=== PATIENT | female | born 1970 | race Caucasian/White ===

== ENCOUNTER 2016-10-27 15:24 | Observation (INO) | payer OTHER ==
[~2016-10-27] VITALS: Ht 157.5 cm; Wt 85.5 kg
[2016-10-27 15:38] VITALS: BP 121/66; PULSE 72; RESP 10; O2SAT 99
[2016-10-27 15:57] LABS: BASOPHILS % (AUTO) 0.4 % (0-3); EOSINOPHILS % (AUTO) 1.3 % (0-5); MONOCYTES % (AUTO) 8.7 % (4-12); Mean Corpuscular Hemoglobin 30.8 pg (27.0-35.0); Mean Corpuscular Volume 92.8 fL (81-100); NEUTROPHILS % (AUTO) 64.4 % (40-74); Platelet Count 408 bil/L (150-400)
[2016-10-27 16:27] LABS: Magnesium 2.1 mg/dL (1.6-2.6)
--- NOTE | 2016-10-27 16:31 | DRSVH ---
PROCEDURE: X-RAY CHEST ONE VIEW, PORTABLE ([id number]) INDICATIONS: CHEST PAIN TECHNIQUE: One view of the chest was acquired. COMPARISON: None. FINDINGS: Surgical changes and devices: None. Lungs and pleura: No pleural effusions or pneumothorax. Lungs are clear. Mediastinum: Mediastinal contours appear normal. Heart size is normal. Bones and chest wall: No suspicious bony lesions. Overlying soft tissues appear unremarkable. IMPRESSION: No acute cardiopulmonary disease. Dictated by: Deepak Fink [facility] Interpreted: Elisabet Walker MD on 10/27/2016 at 16:30 Transcribed by: BOGDAN on 10/27/2016 at 16:30 Approved by: Elisabet Walker MD, PhD on 10/27/2016 at 16:36
[2016-10-27 16:32] LABS: TROPONIN T < 0.010 ug/L (0.0-0.011)
[2016-10-27 17:40] VITALS: BP 117/58; PULSE 66; RESP 22; O2SAT 99
--- NOTE | 2016-10-27 17:58 | ED.REPORT ---
HPI-Chest Pain 40 and Over Date of Service Oct 27, 2016 ED Provider: Vijay Jacobo DO Patient is a 46 year old female with a history of a hiatal hernia with acid reflux and IBS who presents to the ED via EMS after she developed right sided chest pressure 2 days ago, with a year of intermittent episodes of nausea, vomiting, and chest pressure. Patient reports radiation of her pain down her left arm. Patient states that she has been having episodes of nausea intermittently for the past year. She has been having an episodes of nausea and vomiting every month, where she awakes from sleep nauseated. Patient had several of these episodes in the past month. The patient reports the sensation of aspiration and acid reflux in conjunction with these episodes. Patient states that her upper abdomen becomes distended and she feels pressure on her ribcage. She then develops back pressure and feels the urge to vomit. She is able to drink through these episodes. Patient had her hiatal hernia reduced in the past and this improved her symptoms. Patient also is on Omeprazole for acid reflux. Patient was seen by her PCP today, Ariana Valdivia, who thought that her symptoms were concerning. She was found to have abnormal EKG findings ( incomplete RBBB) and was sent to the ED for evaluation. The patient's symptoms today were similar to what her mother experienced prior to having myocardial infarctions. She has not had a cholecystectomy and she denies any RUQ abdominal pain. She denies a fever, chills, cough, or shortness of breath. Patient has not been seen by GI or had an upper endoscopy. Nursing Notes Stated Complaint: CHEST PAIN Chief Complaint: Chest Pain Nursing Notes Reviewed: Yes Allergies: Coded Allergies: Sulfa (Sulfonamide Antibiotics) (Verified Allergy, Severe, Anaphylaxis, ) latex (Verified Allergy, Mild, 08/04/09) Scheduled Lactobacillus Combo No.11 (Probiotic) 1 Each Cap.sprink 2 EACH PO DAILY Multivitamin (Once Daily) 1 Each Tablet 1 EACH PO DAILY Nortriptyline (Nortriptyline) 10 Mg Capsule 20 MG PO HS Omeprazole Magnesium (Prilosec Otc) 20 Mg Tablet.dr 20 MG PO HS Polyethylene Glycol 3350 (Miralax) 17 Gm Powd.pack 17 GM PO DAILY Scheduled PRN oxyCODONE (oxyCODONE) 5 Mg Tablet 5 MG PO Q4H PRN PRN For Moderate Pain Miscellaneous Medications Cranberry Conc/Ascorbic Acid (Cranberry 6,000 mg Softgel) 1 Each Capsule 1 EACH PO Folic Acid (Folic Acid) 20 Mg Capsule 20 MG PO General Time Seen by MD: 17:58 Chief Complaint Chest pain, Other (nausea and vomiting) Hx Obtained From: Patient Arrived By: Ambulance Sudden in Onset?: No Onset Occurred: More than a week ago... (nausea and vomiting for the past year , chest pressure today) Symptom Duration: Waxes and wanes Location: : Chest left: Chest right Quality: Pressure Radiation: : Arm left Severity: Current: Moderate Severity: Maximum: Moderate Recent Healthcare: No recent doctor visit, No recent hospitalization Similar Sx Previous: Yes Past Medical History Past Medical History hiatal hernia with occasional acid reflux IBS Reports: Asthma Past Surgical History Denies: Cholecystectomy Reports: Tubal ligation Social History Other Social History: Good social support, Local resident Ambulatory Status Independent Review of Systems Constitutional: Denies: Chills, Fever Respiratory: Denies: Non-productive cough, Shortness of breath Cardiovascular: Reports: Chest pain GI: Reports: Nausea (for the past year), Vomiting (for the past year), Denies: Abdominal pain Musculoskeletal: Reports: Extremity pain, Denies: Extremity swelling Skin: Reports Diaphoresis, Denies Rash Complete sys rev & neg: except as marked. Physical Exam Initial Vital Signs Vital Signs (First) Date Time Temp Pulse Resp B/P Pulse Ox O2 Delivery O2 Flow Rate FiO2 10/27/16 15:38 36.9 72 10 121/66 99 Room Air Initial VS: Reviewed Head / Eyes: Atraumatic, Normocephalic, PERRL ENT: Conjunctiva normal, No scleral icterus Neurologic: Alert, Oriented, Nonfocal Psychiatric: Mood/affect normal, Behavior normal, Normal thought content General/Constitutional: Awake, Alert, No acute distress Respiratory / Chest: Breath sounds NL, Breath sounds = bilat, No respiratory distress, No rales, No rhonchi, No wheezing cannot reproduce chest pain with palpation Cardiovascular: Heart rate NL, Regular rhythm, Heart sounds NL Abdomen: Soft, Non-tender, No guarding, No rebound Neck: Supple, No adenopathy Lower Extremity / Pelvis / MS: No swelling, No edema Skin: Warm, Dry Color / Condition: Negative: Jaundice present Upper Extremity / MS: No swelling, No edema Interpretation & Diagnostics ABDOMEN US IMPRESSION: 1. Cholelithiasis 2. Gallbladder wall thickening highly suspicious for acute cholecystitis. Dictated by: Elisabet Walker MD, PhD on 10/27/2016 at 19:53 Approved by: Elisabet Walker MD, PhD on 10/27/2016 at 19:53 Lab Results Interpretation Result Diagram: 10/28/16 0500 10/28/16 0500 Test 10/27/16 08:19 10/27/16 15:52 10/27/16 17:48 10/27/16 20:20 Urine Color Straw (YELLOW) Urine Appearance Hazy (CLEAR,HAZY) Urine pH 5.5 (5.0-8.0) Urine Specific [place] 1.025 (1.003-1.035) Urine Protein Negativemg/dL (NEG,TRACE) Urine Glucose (UA) Negativemg/dL (NEGATIVE) Urine Ketones Negativemg/dL (NEGATIVE) Urine Occult Blood Negative (NEGATIVE) Urine Nitrite Negative (NEGATIVE) Urine Bilirubin Negative (NEGATIVE) Urine Urobilinogen Normalmg/dL (NORMAL) Urine Leukocyte Esterase Negative (NEGATIVE) Urine RBC 0-2/hpf (0-2) Urine WBC 0-5/hpf (0-5) Urine Epithelial Cells Occasional/hpf (NONE-MOD) Urine Crystals None seen (NONE SEEN) Urine Bacteria None/hpf (NONE-FEW) Urine Hyaline Casts None/lpf (NONE) Urine Granular Casts None seen (NONE SEEN) Urine Waxy Casts None seen (NONE SEEN) Urine Red Blood Cell Casts None seen (NONE SEEN) Urine White Blood Cell Casts None seen (NONE SEEN) Urine Mucus None seen (None Seen) Urine Trichomonas None seen (NONE SEEN) Urine Yeast None (NONE SEEN) Urinalysis Comment Urine Culture Reflexed Not indicated Magnesium Level 2.1mg/dL (1.6-2.6) Hold Urine Received (Received) Troponin T < 0.010ug/L (0.0-0.011) HCG Beta Subunit 0.500mIU/mL Pulse Oximetry Interpretation Pulse Oximetry: Pulse Ox normal ECG Interpretation ECG Interpretation: Sinus rhythm, Rate 72 Incomplete RBBB Time: 18:01 Interpreted by: ED physician Normal ECG Interpretation: No acute ischemic changes X-Ray Chest Interpretation Chest Xray Interpretation: IMPRESSION: No acute cardiopulmonary disease. Dictated by: Deepak Fink [facility] Interpreted: Elisabet Walker MD on 10/27/2016 at 16:30 Transcribed by: BOGDAN on 10/27/2016 at 16:30 Approved by: Elisabet Walker MD, PhD on 10/27/2016 at 16:36 View: Portable Interpretation / Wet Read by: Interpret - Radiologist Re-Eval/Medical Decision Source of Hx: Old records Time of Eval: 18:41 Patient Status: Condition improved Re-Evaluation/Progress Note: Rechecked the patient, who was informed that her labs are normal. No acute problem on her chest x-ray or EKG. Will order an US of her abdomen to rule out gallbladder disease. Patient understands and agrees with this plan. All questions were addressed. Time of Eval: 19:49 Patient Status: Condition improved Re-Evaluation/Progress Note: Informed the patient of her ultrasound result, which showed too many gallstones to count. Will speak with her PCP prior to discharge home. Will also do 2x Troponin rule out. Time of Eval: 20:04 Re-Evaluation/Progress Note: Informed the patient of the finding of acute cholecystitis per official US reading. Will contact the surgeon for consult. Abdomen remains nontender. Patient now reports a headache. Time of Eval: 20:38 Patient Status: Condition improved Re-Evaluation/Progress Note: Informed the patient of the conversation with Dr. Lemons. Patient should call tomorrow morning to schedule an appointment. Awaiting repeat Troponin prior to discharge. Patient understands and agrees with the plan to be discharged home. Discharge instructions and follow-up discussed. All questions were addressed. Return to the ED warnings given. Time of Eval: 21:30 Re-Evaluation/Progress Note: Rechecked the patient. She reports ongoing pain. She is now unsure if she wants to go home or if she will stay in the hospital. She will receive additional fluids in the ED. Time of Eval: 23:32 Re-Evaluation/Progress Note: Patient has determined that she would like to be admitted to the hospital for cholecystectomy. All questions were addressed. Consultation #1: Referral / Consult Name: Ricardo Woodall DO Consulted With: Primary care physician, On-call physician Call Returned at: 19:57 Note: Spoke with on-call provider for Dr. Jose C Lee. Informed of labs and US results today, with need for cholecystectomy. Will update the patient's record and notify MELISA Valdivia. Consultation #2: Referral / Consult Name: Behzad Lemons MD Consulted With: Surgeon Call Returned at: 20:34 Charging Operator: Will see in office Note: Spoke with Dr. Lemons, surgeon, about the patient's US result. Plan to discharge patient with outpatient follow-up. Consultation #3: Referral / Consult Name: Behzad Lemons MD Consulted With: Surgeon Call Returned at: 23:36 Charging Operator: Will see patient, Agrees with eval, Agrees with plan, Accepts admit Note: Spoke with Dr. Lemons, surgeon, who agrees to accept the patient for admit. Counseled Regarding: Diagnosis, Lab results, Need for admission Discharge & Departure Primary Impression: Cholecystitis Additional Impressions: Cholelithiasis Cholelithiasis location: gallbladder Cholecystitis presence: without cholecystitis Biliary obstruction: without biliary obstruction Qualified Code : K80.20 - Calculus of gallbladder without cholecystitis without obstruction Biliary colic Non-cardiac chest pain Disposition: ADMITTED TO HOSPITAL Discharge Condition All VS Reviewed: Yes Condition: Stable Referrals: Ariana Valdivia PA-C (PCP) Behzad Lemons MD Scribe Attestation Portions of this note were transcribed by Bette Reich. I, Dr. Jacobo personally performed the history, physical exam and medical decision-making; I reviewed and confirmed the accuracy of the information in the transcribed note. Signed by: Neil Blanco, 10/28/2016 0029 copies to: Behzad Lemons MD; Ariana Valdivia PA-C, Todd P DO Oct 27, 2016 17:58 Bette Reich Oct 27, 2016 18:12
[2016-10-27] MEDS ORDERED: Alum-Mag Hydrox-Simeth 30 mL Suspension PO ONE (18:20)
[2016-10-27 19:04] VITALS: BP 117/58; PULSE 70; RESP 16; O2SAT 99
--- NOTE | 2016-10-27 19:55 | DRSVH ---
PROCEDURE: US ABDOMEN ([id number]) INDICATIONS: nausea, upper abdominal pain, right arm pain TECHNIQUE: Real-time scanning was performed of the abdominal and retroperitoneal organs, with image documentatio n. COMPARISON: None. FINDINGS: Liver: Liver is normal in size and homogeneous in echotexture. Gallbladder: Gallbladder is filled with gallstones. Gallbladder wall is thickened to approximately 3.5-4.0 mm. Biliary ducts: Intrahepatic bile ducts are non-dilated. Extrahepatic bile duct caliber measures 1.9 mm. Normal is 6-7 mm or less in diameter, or 10 mm or less post-cholecystectomy. Pancreas: Visualized portions of the pancreas are sonographically normal. Spleen: Spleen is normal in size and homogeneous in echotexture. Kidneys: Kidneys are normal in size and echotexture. Right kidney measures 9.6 cm long; left kidney measures 10.4 cm long. No hydronephrosis or nephrolithiasis. No solid masses. Aorta: Visualized aorta is normal in caliber at less than 3 cm. Iliacs: Proximal common iliac arteries are normal in caliber at less than 2.5 cm. IVC: Intrahepatic inferior vena cava is patent. Miscellaneous: No free abdominal fluid. IMPRESSION: 1. Cholelithiasis 2. Gallbladder wall thickening highly suspicious for acute cholecystitis. Dictated by: Elisabet Walker MD, PhD on 10/27/2016 at 19:53 Approved by: Elisabet Walker MD, PhD on 10/27/2016 at 19:53
[2016-10-27] MEDS ORDERED: HYDROcodone-APAP 5-325 mg Tablet PO ONE (20:15)
[2016-10-27] MEDS ORDERED: Ketorolac 30 mg/mL 2 mL Inj IM ONE (20:15)
[2016-10-27] MEDS ORDERED: _Ondansetron ODT 4 mg Tablet PO PRN (20:45)
[2016-10-27] MEDS ORDERED: _HYDROcodone/APAP 5-325 mg Tablet PO PRN (20:45)
[2016-10-27] MEDS ORDERED: _oxyCODONE/APAP 5-325 mg Tablet PO PRN (21:35)
[2016-10-27] MEDS: HYDROmorphone 0.5 mg/0.5 mL iSecure Syringe IVPUSH PRN ×2 (21:44→22:30)
[2016-10-27] MEDS ORDERED: metroNIDAZOLE Inj 500 MG in IV Premix 1 EACH IV ONE (23:35)
[2016-10-27] MEDS ORDERED: cefTRIAXone Inj 2,000 MG in IV Premix 1 EACH IV ONE (23:35)
[2016-10-27] MEDS ORDERED: Ondansetron 2 mg/mL 2 mL Inj IVPUSH PRN ×2 (23:45)
[2016-10-27] MEDS ORDERED: HYDROmorphone 0.5 mg/0.5 mL iSecure Syringe IVPUSH PRN (23:45)
[2016-10-27] MEDS ORDERED: Alum-Mag Hydrox-Simeth 30 mL Suspension PO PRN (23:45)
[2016-10-28] VITALS (22 sets, daily range): BP systolic 96–147; BP diastolic 61–90; PULSE 60–104; RESP 13–18; O2SAT 95–100
[2016-10-28] MEDS: Lactated Ringer's 1,000 ML IV SCH ×2 (01:57→17:22)
[2016-10-28 05:07] LABS: BASOPHILS % (AUTO) 0.2 % (0-3); EOSINOPHILS % (AUTO) 0.3 % (0-5); MONOCYTES % (AUTO) 6.9 % (4-12); Mean Corpuscular Hemoglobin 31.3 pg (27.0-35.0); NEUTROPHILS % (AUTO) 74.9 % (40-74); Platelet Count 340 bil/L (150-400)
[2016-10-28] MEDS ORDERED: LACT1CAP73 PO (05:25)
[2016-10-28] MEDS ORDERED: CETI10CA PO (05:25)
[2016-10-28] MEDS ORDERED: MULT-666 PO (05:25)
[2016-10-28] MEDS ORDERED: OMEP20TA24 PO (05:25)
[2016-10-28] MEDS ORDERED: NORT10CA PO (05:25)
--- NOTE | 2016-10-28 05:30 | NUR ---
Admit Admitted to ED room 14 as inpatient. RA without SOB. Denies CP or discomfort. c/o mild nausea without emesis. NPO until surgical consult. Currently denies pain or discomfort but reports abdominal prior to assuming care. Indep with activity without any noted issues. Personal belongings at bedside per patient request. Oriented to call light use with return demonstration.
[2016-10-28] MEDS ORDERED: metroNIDAZOLE Inj 500 MG in IV Premix 1 EACH IV SCH (08:30)
[2016-10-28 08:46] LABS: APPEARANCE,URINE HAZY (CLEAR,HAZY); COLOR,URINE STRAW (YELLOW); OCCULT BLOOD,URINE NEGATIVE (NEGATIVE); PH,URINE 5.5 (5.0-8.0); UROBILINOGEN,URINE NORMAL (NORMAL)
--- NOTE | 2016-10-28 08:54 | NUR ---
Social Work Note - Initial Assessment Karishma Franklin is a 46 yr old admitted for Cholecystitis - Awaiting gall bladder surgery. EMR reviewed: Pt has [employer] insurance, Her PCP is Ariana Guerrero. Readmit score not available. Pt lives at home with her , Is independent at baseline and BOAT OUTFITTER anticipates that pt will d/c home with and no needs identified. BOAT OUTFITTER will follow if needs arise. Plan: Home with in POV. LUDIN Stone
[2016-10-28] MEDS ORDERED: CRAN1CAP2 PO (10:29)
[2016-10-28] MEDS ORDERED: FOLI20CA PO (10:29)
--- NOTE | 2016-10-28 10:30 | NUR ---
Admit to floor Pt arrived to floor. A&0x3. Pt still has upper right sided chest and shoulder pressure (on/off) at 1-2/10. Will continue to monitor.
[2016-10-28] MEDS ORDERED: fentaNYL-PF 50 mCg/mL 2 mL Inj ONE (10:54)
[2016-10-28] MEDS ORDERED: Ampicillin-Sulbactam Inj 3,000 MG in 0.9% Sodium Chloride 100 ML IV ONE (11:10)
--- NOTE | 2016-10-28 11:44 | HP ---
[address] [address] HISTORY AND PHYSICAL PATIENT: LA CANTOR : 1970 MR#: [id number] ADMIT: 10/28/2016 JOB ID: [id number] CHIEF COMPLAINT: A 46-year-old lady with possible cholecystitis seen in consultation at the request of Vijay Jacobo DO and Behzad Lemons MD. HISTORY OF PRESENT ILLNESS: The patient is a 46-year-old lady who has had abdominal symptoms for a number of years. These are associated with bloating and abdominal discomfort and constipation followed by diarrhea. She is reportedly followed by chief media officer Dr. Forte in [place]. When she presented to her primary physician, Ariana Valdivia PA-C, yesterday, she was having chest or abdominal discomfort and she was thought to have an incomplete right bundle branch block prompting a referral to the emergency department. When she was worked up in the emergency department the findings were more concerning for cholecystitis than a cardiac event, prompting and Dr. Jacobo to contact Dr. Lemons and admission to the hospital. She has been on antibiotics and pain medication and her abdominal symptoms are a little better, but she is still having upper abdominal pain. OTHER MEDICAL PROBLEMS: 1. Obesity. 2. Irritable bowel syndrome. 3. Asthma. PRIOR OPERATIONS: 1. Tubal ligation. 2. section. MEDICATIONS AT HOME: 1. Omeprazole. 2. Nortriptyline. 3. Multivitamin. 4. Lactobacillus. 5. Folic acid. 6. Cranberry. ALLERGIES: 1. SULFA. 2. LATEX. REVIEW OF SYSTEMS: Twelve point review of systems negative other than the pertinent positives noted in the history of present illness and other medical problems. FAMILY HISTORY: Both parents have COPD. Mom has coronary artery disease. SOCIAL HISTORY: She never smoked. INVESTIGATIONS: WBC 8.5, hemoglobin 13.7, platelet count 408. Creatinine 0.76. Bilirubin 0.3, AST 23, ALT 18, alkaline phosphatase 92, albumin 4.3. EKG: Incomplete right bundle branch block. Chest x-ray: No acute cardiopulmonary disease. Ultrasound: Cholelithiasis with some gallbladder wall thickening. No biliary ductal dilatation. PHYSICAL EXAMINATION: A 46-year-old lady in no acute distress. BMI 34.5, temperature 36.7, pulse 60, blood pressure 98/67, saturating 95% on room air. Eyes: Normal pupils, conjunctivae. Ears, nose, and throat: Normal external appearance. Respiratory: Normal effort, clear to auscultation. Neck: No jugular venous distention. Cardiovascular: Regular rate and rhythm, normal heart sounds. Gastrointestinal: Focally tender to palpation in the right upper quadrant. Neurologic: No gross deficits. Psych: Alert, appropriate. Skin: Normal. Musculoskeletal: Normal strength in extremities. ASSESSMENT AND PLAN: Discussed the pathophysiology and treatment rationale for gallstone disease. She could have biliary colic or cholecystitis. Tenderness and gallbladder wall thickening are concerning for cholecystitis. We will continue antibiotics and recommended laparoscopic cholecystectomy with intraoperative cholangiogram. She wishes to proceed and we will go ahead when we have operating room availability.
--- NOTE | 2016-10-28 17:07 | NUR ---
To OR patient transferred from [facility] to OR approx [phone]. stable vital signs. IV saline locked. NPO for procedure. Report given to charge nurse.
[2016-10-28] MEDS ORDERED: Glycopyrrolate 0.2 mg/mL 5 mL Inj ONE (18:00)
[2016-10-28] MEDS ORDERED: Propofol 10,000 mCg/mL 20 mL Inj ONE (18:00)
[2016-10-28] MEDS ORDERED: Neostigmine 1 mg/mL 5 mL Inj ONE (18:00)
[2016-10-28] MEDS ORDERED: MetoCLOpramide 5 mg/mL 2 mL Inj ONE (18:00)
[2016-10-28] MEDS ORDERED: Ondansetron 2 mg/mL 2 mL Inj ONE (18:00)
[2016-10-28] MEDS ORDERED: Rocuronium 10 mg/mL 5 mL Inj ONE (18:00)
[2016-10-28] MEDS ORDERED: Dexamethasone 4 mg/mL Inj ONE (18:00)
[2016-10-28] MEDS ORDERED: Bupivacaine-MPF 0.5% 30 mL Inj INJ ONE (18:03)
[2016-10-28] MEDS ORDERED: Iopamidol-300 50 mL Inj IV ONE (18:03)
[2016-10-28] MEDS ORDERED: Lactated Ringer's 500 ML IV PRN (18:04)
[2016-10-28] MEDS ORDERED: Lactated Ringer's 1,000 ML IV SCH (18:04)
[2016-10-28] MEDS ORDERED: Labetalol 5 mg/mL 4 mL Inj IV PRN (18:05)
[2016-10-28] MEDS ORDERED: hydrALAZINE 20 mg/mL Inj IVPUSH PRN (18:05)
[2016-10-28] MEDS ORDERED: MetoCLOpramide 5 mg/mL 2 mL Inj IVPUSH PRN (18:05)
[2016-10-28] MEDS ORDERED: Ondansetron 2 mg/mL 2 mL Inj IVPUSH PRN (18:05)
[2016-10-28] MEDS ORDERED: Atropine 0.4 mg/mL Inj IVPUSH PRN (18:05)
--- NOTE | 2016-10-28 18:05 | PCM.HPANE ---
Patient Data Surgeon Admitting Provider:Behzad Lemons MD Attending Provider:Behzad Lemons MD Primary Care Physician:Ariana Valdivia PA-C Other Provider:Jovany Flores Anesthesia Reason for Visit Cholecystitis Ht/WT & BMI Height (Feet): 5 Height (Inches): 2 Weight (Kilograms): 85.45 Body Mass Index Allergies Coded Allergies: Sulfa (Sulfonamide Antibiotics) (Verified Allergy, Severe, Anaphylaxis, ) latex (Verified Allergy, Mild, 08/04/09) Past Anesthesia History Anesthesia History: Denies:: Anesthesia Reactions Diabetes History Hx Diabetes?: No Current Bedside Blood Glucose: 82 MRSA MRSA: No Medications Reported Medications Cranberry Conc/Ascorbic Acid (Cranberry 6,000 mg Softgel)1 Each Capsule1 Each PO 10/28/16 Folic Acid 20 Mg Zuccsnb18 Mg PO 10/28/16 Multivitamin (Once Daily)1 Each Tablet1 Each PO DAILY 10/28/16 Lactobacillus Combo No.11 (Probiotic)1 Each Cap.sprink2 Each PO DAILY 10/28/16 Nortriptyline 10 Mg Fwxegvt73 Mg PO HS 10/28/16 Omeprazole Magnesium (Prilosec Otc)20 Mg Tablet.dr20 Mg PO HS #1 PKG Ref 0 10/28/16 Discontinued Reported Medications Cetirizine HCl (Zyrtec)10 Mg Vrgnudv24 Mg PO MORNING #30 CAPSULE Ref 0 10/28/16 History History of ENT Problems?: No Hx of Heart Problems?: No Cardiovascular History: Denies:: Congestive Heart Failure Hypertension Hx of Respiratory Problem?: Yes Respiratory History: Positive for:: Asthma Denies:: Tuberculosis Hx Neurologic Problems?: No Gastrointestinal History: Positive for:: Gastroesphageal Reflux Heartburn Hiatal Hernia Hx of Problems?: No Genitourinary History: Positive for:: Kidney Stones Urinary Tract Infection Denies:: HX of Hemodialysis HX of Peritoneal Dialysis: No Female Hx: Denies:: Currently Endometriosis Pelvic Inflammatory Problems with Breasts? Musculoskeletal History: Positive for:: Musculoskeletal Trauma (fall and kicked by a horse) Denies:: Back Injury Joint Replacement Psycho Social History: Positive for:: Hx Depression Denies:: Anxiety Bipolar Disorder Suicide Attempt Hx Surgeries?: Yes (Csection and tubal ligation) Hx Any Other Health Problems?: No Other History: Denies:: Cancer Hospitalization Thyroid Disease History Blood Transfusions: Positive for:: Accept Blood Products? Denies:: Blood Transfusions Hx Diabetes: NoBedside Blood Glucose: 82 Hx Alcohol Use: Yes (Rare social)Hx Substance Use: No Stop/Bang Treated for Sleep Apnea?: No Do You Have a CPAP Machine?: No S-Snoring: Do You Snore Loudly: Yes T-Tired: feel tired, fatigued: No O-Obsered: Observed not breath: No P-Blood Pressure: treated: No B- Body Mass Index > 35 kg/m2: No A- Age over 50: No N- Neck Large Circumference: No G- Gender Male: No JOSE MARIA Total Score: 1 Risk Assessment Category Category 1A: Patient has history of documented sleep apnea, and HAS NOT received any narcotic, sedative or anesthesia administration during this stay. Category 1B: Patient has history of documented sleep apnea, and HAS received any narcotic , sedative or anesthesia administration during this stay Category 2: Patient has SUSPECTED Obstructive Sleep Apnea, and HAS received any narcotic , sedative or anesthesia administration during this stay. Category 3: Patient has SUSPECTED Obstructive Sleep Apnea and HAS NOT received narcotic, sedative or anesthesia administration during this stay. Category 4: Outpatient in Procedural Areas with known sleep apnea or who screen positive for High Risk via the STOP/BANG questionnaire. Exam Exam Vital Signs Vital Signs Date Time Temp Pulse Resp B/P Pulse Ox O2 Delivery O2 Flow Rate FiO2 10/28/16 10:36 36.7 60 18 98/67 95 Room Air General Appearance: Alert, Oriented X3, Cooperative, No Acute Distress HEENT/AIRWAY: MP 2, Neck Movement (FROM), Mouth Opening (3 FBMO) Lungs: Clear to Auscultation, Normal Air Movement Heart: Exam Unremarkable, Regular Rate/Rhythm, No Murmurs/Rubs/Gallops Meds/Labs/Diagnostics Admission Meds Current Medications Al Hydrox/Mg Hydrox/Simethicone (Maalox Plus) 5 ml ONCE ONCE PO Last administered on 10/27/16 18:33; Start 10/27/16 at 18:20; Stop 10/27/16 at 18:21 ; Status DC Lidocaine HCl (Xylocaine Viscous 2% Soln 15mL) 5 ml ONCE ONCE PO Last administered on 10/27/16 18:33; Start 10/27/16 at 18:20; Stop 10/27/16 at 18:21 ; Status DC Ketorolac Tromethamine (Toradol Inj) 30 mg ONCE ONCE IVPUSH Last administered on 10/27/16 20:29; Start 10/27/16 at 20:05; Stop 10/27/16 at 20:06; Status DC Acetaminophen/ Hydrocodone Bitart ([place] 5-325) 1 tablet ONCE ONCE PO Last administered on 10/27/16 20:35; Start 10/27/16 at 20:15; Stop 10/27/16 at 20:16 ; Status DC Ondansetron HCl 4 mg 4 mg ONCE ONCE PO Last administered on 10/27/16 20:36; Start 10/27/16 at 20:15; Stop 10/27/16 at 20:16; Status DC Ceftriaxone Sodium/Dextrose 2000 mg/Premix 50 ml @ 100 mls/hr ONCE ONCE IV Last administered on 10/28/16 00:15; Start 10/27/16 at 23:35; Stop 10/28/16 at 00:04; Status DC Metronidazole/ Sodium Chloride 500 mg/Premix 100 ml @ 200 mls/hr ONCE ONCE IV Last administered on 10/28/16 01:05; Start 10/27/16 at 23:35; Stop 10/28/16 at 00:04; Status DC Lactated Ringer's 1,000 ml @ 100 mls/hr Q10H IV Last administered on 01:57; Start 10/27/16 at 23:43; Stop 10/28/16 at 11:11; Status DC Metronidazole/ Sodium Chloride/ Premix (Flagyl Inj/IV Premix) 100 ml @ 200 mls/ hr Q12 IV Last administered on 10/28/16 08:30; Start 10/28/16 at 08:30; Stop 10/28/16 at 11:11; Status DC Bedside Blood Glucose: 82 Labs Test 10/27/16 08:19 10/27/16 15:52 10/27/16 17:48 10/27/16 20:20 Urine Color Straw (YELLOW) Urine Appearance Hazy (CLEAR,HAZY) Urine pH 5.5 (5.0-8.0) Urine Specific [place] 1.025 (1.003-1.035) Urine Protein Negativemg/dL (NEG,TRACE) Urine Glucose (UA) Negativemg/dL (NEGATIVE) Urine Ketones Negativemg/dL (NEGATIVE) Urine Occult Blood Negative (NEGATIVE) Urine Nitrite Negative (NEGATIVE) Urine Bilirubin Negative (NEGATIVE) Urine Urobilinogen Normalmg/dL (NORMAL) Urine Leukocyte Esterase Negative (NEGATIVE) Urine RBC 0-2/hpf (0-2) Urine WBC 0-5/hpf (0-5) Urine Epithelial Cells Occasional/hpf (NONE-MOD) Urine Crystals None seen (NONE SEEN) Urine Bacteria None/hpf (NONE-FEW) Urine Hyaline Casts None/lpf (NONE) Urine Granular Casts None seen (NONE SEEN) Urine Waxy Casts None seen (NONE SEEN) Urine Red Blood Cell Casts None seen (NONE SEEN) Urine White Blood Cell Casts None seen (NONE SEEN) Urine Mucus None seen (None Seen) Urine Trichomonas None seen (NONE SEEN) Urine Yeast None (NONE SEEN) Urinalysis Comment Urine Culture Reflexed Not indicated Magnesium Level 2.1mg/dL (1.6-2.6) Hold Urine Received (Received) Troponin T < 0.010ug/L (0.0-0.011) HCG Beta Subunit 0.500mIU/mL Test 10/28/16 05:00 White Blood Count 9.2th/mm3 (3.8-10.1) Red Blood Count 4.00mil/mm3 (3.90-5.20) Hemoglobin 12.5g/dL (12.0-15.6) Hematocrit 36.8% (35.0-46.0) Mean Corpuscular Volume 92.0fL (81-100) Mean Corpuscular Hemoglobin 31.3pg (27.0-35.0) Mean Corpuscular Hemoglobin Concent 34.0% (32.0-37.0) Red Cell Distribution Width 12.6% (12.3-15.4) Platelet Count 340bil/L (150-400) Neutrophils (%) (Auto) 74.9% (40-74) Lymphocytes (%) (Auto) 17.6% (14-46) Monocytes (%) (Auto) 6.9% (4-12) Eosinophils (%) (Auto) 0.3% (0-5) Basophils (%) (Auto) 0.2% (0-3) Sodium Level 140mEq/L (134-144) Potassium Level 4.4mEq/L (3.5-5.2) Chloride Level 104mEq/L (97-108) Carbon Dioxide Level 23mmol/L (18-29) Blood Urea Nitrogen 14mg/dL (6-24) Creatinine 0.80mg/dL (0.57-1.00) Estimat Glomerular Filtration Rate 112mL/min (>59) Glucose Level 110mg/dL (60-99) Calcium Level 8.8mg/dL (8.5-10.1) Total Bilirubin 0.4mg/dL (0.0-1.2) Aspartate Amino Transf (AST/SGOT) 23U/L (0-50) Alanine Aminotransferase (ALT/SGPT) 18U/L (0-32) Alkaline Phosphatase 86U/L (25-150) Total Protein 6.6g/dL (6.4-8.4) Albumin 3.9g/dL (3.4-5.0) Lipase 26U/L (13-60) Plan Impression Patient chart reviewed, patient interviewed and anesthestic plan with risks, benefits, and alternatives discussed, and informed consent obtained. NPO Status: > 8 hrs ASA Physical Status: ASA2 Mod Systemic Disease Anesthetic Support Modalities: [place] Scope Anesthetic Plan: GA Bene/Risks/Altern/Consents: Yes HP Complete Prior to Induction: Yes Clive Orlando MD Oct 28, 2016 16:50
--- NOTE | 2016-10-28 19:01 | PCM.SURGPO ---
Immediate Operative Note Date of Surgery: Oct 28, 2016 Pre Operative Diagnosis Cholecystitis Post Operative Diagnosis Cholecystitis Procedure Laparoscopic Cholecystectomy with Cholangiogram Surgeon and Burglary Investigator Surgeon: Aj Peña MD Assistants: Karla Carrillo MD Findings Mild Cholecystitis Complications There were no periprocedural complications identified. Surgical Specimen Removed: Yes Specimen sent to Pathology: Yes Surgical Specimen description: Gallbladder with stones Anesthetic Administered: GA Grafts, Implants: None Output, Estimated Blood Loss: 0 Blood Admin during surgery: No Attending Statement Information Security Officer listed was medically necessary for the successful completion of the case Aj Peña MD Oct 28, 2016 19:01
[2016-10-28] MEDS ORDERED: OXYC5TAB72 PO (19:09)
[2016-10-28] MEDS ORDERED: POLY17PO6 PO (19:09)
--- NOTE | 2016-10-28 19:17 | PCM.ANEP2 ---
Post Anesthesia Evaluation ASA/CMS Post Anesthesia VS in Patient's Normal Range?: Yes Resp Stable; Airway Patent?: Yes CV Function & Hydration Stable: Yes Mental Status Recovered?: Yes Pain control Satisfactory?: Yes N/V Control Satisfactory?: Yes Clive Orlando MD Oct 28, 2016 19:17
--- NOTE | 2016-10-28 19:17 | PCM.ANEP1 ---
Post Anesthesia Phase 1 PACU Phase 1 Assessment Date of Service: Oct 28, 2016 Vital Signs Vital Signs Date Time Temp Pulse Resp B/P Pulse Ox O2 Delivery O2 Flow Rate FiO2 10/28/16 19:10 36.7 104 16 133/88 100 Simple Mask 8 10/28/16 17:06 37.2 72 14 108/69 95 Room Air Anesthetic Administered: GA Level of Alertness: Awake, talking SANTANA's with Equal Strength: Yes Pain: Yes Pain Scale Score: 5 Nausea or Vomiting: No Oxygen Delivery: Simple Mask Lungs: Clear to Auscultation, Normal Air Movement Dermatome Level: Full Sensation Clive Orlando MD Oct 28, 2016 19:17
[2016-10-28] MEDS: fentaNYL-PF 50 mCg/mL 2 mL Inj IVPUSH PRN ×2 (19:25→20:10)
--- NOTE | 2016-10-28 19:33 | OP ---
[address] [address] OPERATIVE REPORT PATIENT: LA CANTOR : 1970 MR#: [id number] ADMIT: 10/28/2016 JOB ID: [id number] DATE OF SURGERY: 10/28/2016 PREOPERATIVE DIAGNOSIS(ES): Acute cholecystitis. POSTOPERATIVE DIAGNOSIS(ES): Acute cholecystitis. PROCEDURE PERFORMED: Laparoscopic cholecystectomy with intraoperative cholangiogram. SURGEON: Aj Peña MD SURFACE ROOM SHOP OPTICIAN: Amy Berrios PA-C ANESTHESIA: General endotracheal with local. ESTIMATED BLOOD LOSS: Minimal. COMPLICATIONS: None. CONDITION OF THE PATIENT: Stable. INDICATIONS: The patient is a 46-year-old lady who presented with upper abdominal discomfort to the emergency department yesterday. She was found to have gallstones and some thickening of the gallbladder, with normal white blood cell count. Due to pain that could not be controlled with pain medications she was admitted to the surgery service on IV antibiotics. After discussing the risks, benefits, and alternatives, she was brought to the operating room for laparoscopic cholecystectomy. PROCEDURE DETAILS: She was placed in supine position. Underwent smooth induction of general anesthesia. Abdomen was prepped and draped in the usual sterile fashion. Surgical time-out was undertaken using safety checklist and all were in agreement. I began by making an infraumbilical incision, opening the old tubal ligation scar, and entered the abdomen using an Optiview trocar. After obtaining pneumoperitoneum, I up-sized the port to a 12. I then placed three 5 mm trocars in the upper abdomen. We retracted the gallbladder cephalad and to the right and dissected the triangle of Calot anteriorly and posteriorly. I divided the cystic artery and the cystic duct, divided the cystic artery between clips, and then clipped the cystic duct up towards the specimen, obtained a cholangiogram which was normal, then clipped the cystic duct doubly on the patient's side, and then divided it, and then dissected the gallbladder off the liver bed with good hemostasis, placed it in an EndoCatch bag, and removed it through the umbilical port site. After that the umbilical ports were removed under direct vision. The umbilical port site fascia was closed with [id number] 0-Vicryl suture. Skin was reapproximated with 4-0 Monocryl. Steri-Strips and sterile dressing were applied. Patient was recovered from anesthesia and was taken to the recovery room in stable condition.
[2016-10-28] MEDS ORDERED: hydrOXYzine Inj 25 MG/1 mL SDV IM ONE (19:37)
[2016-10-28] MEDS ORDERED: EPHEDrine Sulfate 50 mg/mL Inj ONE (19:38)
[2016-10-28] MEDS: HYDROmorphone 1 mg/mL Inj IVPUSH PRN ×2 (19:50→20:05)
--- NOTE | 2016-10-28 20:32 | DRSVH ---
PROCEDURE: X-RAY OPERATIVE CHOLANGIOGRAM ([id number]) INDICATIONS: SURGERY COMPARISON: None. FINDINGS: Biliary ducts: The surgeon injected contrast into the biliary ducts after cannulation of the cystic duct stump. Visualized intra- and extrahepatic bile ducts are normal in caliber, without strictures. No intraluminal filling defects to suggest retained ductal stones or sludge. No evidence for iatro genic ductal injury. Duodenum: Contrast flows promptly through the sphincter of Oddi into the duodenum, which appears nor mal in caliber. IMPRESSION: Normal intraoperative cholangiogram. Dictated by: Jessica Crowley M.D. on 10/28/2016 at 20:31 Approved by: Jessica Crowley M.D. on 10/28/2016 at 20:31
[2016-10-29 05:23] VITALS: BP 100/62; PULSE 88; RESP 16; O2SAT 92
--- NOTE | 2016-10-29 06:31 | NUR ---
GI/Respiratory/Pain Pt has been able to tolerate all PO medications and food. Pt is on a continuous pulse ox r/t possible JOSE MARIA. Pt arrived to room on 2L NC and then was able to have the supplemental O2 DC'd within a few hours after arrival. Pt's pain is 2/10 with PO 5mg roxicodone.
[2016-10-29] MEDS ORDERED: Polyethylene Glycol (PEG) 17 Gm Powder PO SCH (08:30)
--- NOTE | 2016-10-29 08:56 | PCM.DISURG ---
Surgical Discharge Instruction Date of Service Oct 29, 2016 Dates of Hospitalization Date of Hospital Admission Oct 28, 2016 at 00:50 Providers Admitting Physician: Behzad Lemons MD Primary Care Physician: Ariana Valdivia PA-C Attending Physician: Behzad Lemons MD Discharge Diagnosis Discharge Diagnosis LAPAROSCOPIC CHOLECYSTECTOMY Post Operative diagnosis Cholecystitis Diet Discharge Diet: No restrictions Activity Discharge Activity-General: No lifting >15 pounds for 2 weeks Dressing and Incisional Care Dressing Care: Allow Steri Stripes to fall off, Remove outer dressing after 24 hrs Hygiene: May shower Follow Up Plan Follow Up Plan Follow up with Dr. Peña in [facility] in 1-2 weeks for routine wound check and pathology review Call your provider for: Fever, Increasing abdominal pain Behzad Lemons MD Oct 29, 2016 08:56
--- NOTE | 2016-10-29 10:53 | NUR ---
Discharge Pt given handout and Rx X2, pt knows to f/u with [facility] for f/u in 1 -2 weeks. Pt was taken to lobby via w/c where her son has taken her home.
--- NOTE | 2016-10-29 13:56 | PROG NOTE ---
[address] [address] PROGRESS NOTE PATIENT: LA CANTOR : 1970 MR#: [id number] ADMIT: 10/28/2016 JOB ID: [id number] DATE: 10/29/2016 SUBJECTIVE: Postop day one laparoscopic cholecystectomy. She feels fine, is symptomatically much better from her surgery. She has been afebrile with stable vital signs. Her abdominal examination is benign. There are no follow up labs. IMPRESSION AND PLAN: Doing well status post laparoscopic cholecystectomy. She would like to be discharged today and I think this is medically reasonable.
--- NOTE | 2016-10-31 16:04 | PCM.DC.SUR ---
Discharge Summary Date of Service: Date of Hospital Admission: Oct 28, 2016 at 00:50 Date of Operation(s): 10/28/2016 Date of Discharge: 10/29/2016 Diagnosis at Time of Discharge Primary diagnosis: Acute cholecystitis Other diagnoses: 1. Obesity, BMI 34.5 2. Irritable bowel syndrome. 3. Asthma. Problems: Operation Laparoscopic cholecystectomy with intraoperative cholangiogram Brief History and Physical: The patient is a 46-year-old lady who presented with upper abdominal discomfort to the emergency department the day prior to admission. She was found to have gallstones and some thickening of the gallbladder, with normal white blood cell count. Due to pain that could not be controlled with pain medications she was admitted to the surgery service on IV antibiotics. Consultants: None Hospital Course: The patient was admitted and underwent the above-mentioned operation without complication. She was stable for discharge and requesting discharge the following morning. Pathology: Pending Disposition: The patient was discharged home on her first postsurgical day. Follow-up Plan: She will follow up in the office with Dr. Peña in 1-2 weeks. Cranberry Conc/Ascorbic Acid (Cranberry 6,000 mg Softgel) 1 Each Capsule 1 EACH PO (Reported) Folic Acid (Folic Acid) 20 Mg Capsule 20 MG PO (Reported) Lactobacillus Combo No.11 (Probiotic) 1 Each Cap.sprink 2 EACH PO DAILY ( Reported) Multivitamin (Once Daily) 1 Each Tablet 1 EACH PO DAILY (Reported) Nortriptyline (Nortriptyline) 10 Mg Capsule 20 MG PO HS (Reported) Omeprazole Magnesium (Prilosec Otc) 20 Mg Tablet.dr 20 MG PO HS (Reported) Polyethylene Glycol 3350 (Miralax) 17 Gm Powd.pack 17 GM PO DAILY oxyCODONE (oxyCODONE) 5 Mg Tablet 5 MG PO Q4H PRN PRN For Moderate Pain copies to: Ariana Valdivia PA-C, Fred H PA-C Oct 31, 2016 16:04
--- NOTE | 2016-11-01 11:57 | PATH ---
SURGICAL PATHOLOGY Attending Physician:jA Peña MD CASE STATUS: Signed Out PATIENT NAME: LA CANTOR PID: [id number] : 1970 DATE COLLECTED:10/28/2016 23:08 SPECIMEN: Gallbladder CLINICAL HISTORY: CHOLECYSTITIS GALLBLADDER FINAL DIAGNOSIS: Gallbladder: Cholelithiasis with associated chronic cholecystitis and cholesterolosis. ICD10 K80.66 GROSS DESCRIPTION: The specimen is received in one formalin filled container labeled with the patient's name, sublabeled "gallbladder" and consists of an intact 10.0 x 3.5 x 2.5 CM gallbladder. The serosa is smooth. The wall is 0.2-0.3 CM in thickness. The mucosa is a dark green in color. The lumen contains a thick green mucoid material and approximately 20-30 dark espinal multifaceted calculi which range in size from 0.3-0.5 CM in greatest dimension. 5 sales donor recruitment representative sections are submitted in cassette. 10/29/2016 [facility] [place] ICD-9 CODES: CPT CODES: 1: 19466 Electronically Signed Out Tray Pruitt MD [facility] [address], [place] [address] Technical component performed at [facility], [address] [place] [address] Ave[address], [place], [address]
== END 2016-10-29 10:55 | disposition home or self-care (01) ==
LOC: EDBD 15:24 → SED 15:24 → OFED 10-28 00:50 → MOC 10-28 10:10
PROVIDERS: ADMIT Surgery; ATTEND Surgery
DX: K80.10 Calculus of gallbladder with chronic cholecystitis without obstruction (principal); K21.9 Gastro-esophageal reflux disease without esophagitis; K44.9 Diaphragmatic hernia without obstruction or gangrene; K58.9 Irritable bowel syndrome, unspecified; R07.89 Other chest pain; E66.9 Obesity, unspecified; F32.9 Major depressive disorder, single episode, unspecified; J45.909 Unspecified asthma, uncomplicated; Z87.442 Personal history of urinary calculi; Z87.440 Personal history of urinary (tract) infections; Z68.34 Body mass index [BMI] 34.0-34.9, adult
CPT/HCPCS: 36415; 47563; 71010; 74300; 76700; 80053; 81000; 82948; 83690; 83735; 84484; 84702; 85025; 93005; 96365; 96366; 96367; 96375; 96376; 99285; G0378; J0696; J1100; J1170; J2250; J2270; J2405; J2710; J2765; J3010; J3410; J3490; J7120; Q9967